=== PATIENT | male | born 1965 | race Caucasian/White ===

== ENCOUNTER → 2016-11-05 | Outpatient (CLI) | payer BC ==
[~2016-11-05] MED LIST: APAP650 PO; CEFDINIR300 MG PO; METHOCARBAMOL750 MG PO; PREDNISONE 20 M20 MG PO; PRILOSEC40 MG PO; UNK MUSCLE RELAXER; ZANTAC300 MG PO; [UNRECOGNIZED DRUG - REMARK]
== END ==
LOC: CAT 09:26
DX: M54.2 Cervicalgia (principal)

== ENCOUNTER → 2017-09-06 | Outpatient (CLI) | payer BC | LOC: CAT 10:17 | DX: R07.9 Chest pain, unspecified (principal); R05 Cough; F17.200 Nicotine dependence, unspecified, uncomplicated ==

== ENCOUNTER → 2019-06-02 | Outpatient (CLI) | payer OTHER | LOC: CAT 15:25 | DX: Z13.6 Encounter for screening for cardiovascular disorders (principal); E78.00 Pure hypercholesterolemia, unspecified; I25.10 Atherosclerotic heart disease of native coronary artery without angina pectoris ==

== ENCOUNTER → 2019-06-03 | Outpatient (CLI) | payer BC | LOC: ULTRA 07:35 | DX: R11.0 Nausea (principal); R07.9 Chest pain, unspecified; R94.5 Abnormal results of liver function studies ==